=== PATIENT | female | born 1945 | race Two or more races ===

== ENCOUNTER 2021-09-10 06:07 | Day surgery (SDC) | payer OTHER ==
[~2021-09-10 06:07] MED LIST: ANAST PO; ATACAND16 MG PO; ATIVAN2 M1 PO; GABAPENT PO; HYDROCHLOROTH12.5 MG PO; OMEGA 3 1,0001 EACH PO; PEPCID PO; SYNTHROID75 MCG PO; TOPROL XL50 M1 PO
== END 2021-09-10 15:50 | disposition home or self-care (01) ==
LOC: CIR.AMB 06:07
PROVIDERS: ATTEND Surgery
DX: D05.12 Intraductal carcinoma in situ of left breast (principal); C77.3 Secondary and unspecified malignant neoplasm of axilla and upper limb lymph nodes; Z20.822 Contact with and (suspected) exposure to COVID-19